=== PATIENT | female | born 1990 | race Hispanic/Latino ===

== ENCOUNTER 2018-02-21 17:11 | Inpatient (IN) | payer MEDICAID, SELFPAY ==
[2018-02-21 17:50] VITALS: BMI 38.7
--- NOTE | 2018-02-21 19:02 | PDOC.FPROB ---
FMR OB H&P: HPI - History of Present Illness Chief Complaint: Abnormal labs History of Present Illness: This is a 27 yo at 37.6wks by LMP c/w 12.4wk US who presents to L&D from clinic due to a concern for elevated BPs and a drop in platelets. Pt currently denies any headache, chest pain, SOB, abdominal pain, and nausea/ vomiting. She reports movement and denies LOF or vaginal bleeding. Labs in clinic were as follows: Cr 0.65, PLTs are 160, down from 238 FMR OB H&P: Current - Care : 2 Para: 1001 Gestational age: 37.6 Due date: 03/08/18 Dating Criteria: LMP c/w 12.4wk US - OB Labs Blood type: O RH: positive Antibody Screen: negative HIV: negative RPR: negative HepBsAg: negative Rubella: non-immune (08/14/17) Gonorrhea: negative Chlamydia: negative 1 hour gtt: 146 3 hour GTT: 125 A1c: 5.1 GBS: negative FMR OB H&P: History - OB History OB History: Vaginal delivery at 39.0 FMR OB H&P: Medications - Current Home Medications: Medication Instructions Recorded Confirmed Type Vitamin 1 tablet PO DAILY 02/21/18 02/21/18 History Allergies/Adverse Reactions: Allergies Allergy/AdvReac Type Severity Reaction Status Date / Time No Known Allergies Allergy Verified 02/21/18 17:44 FMR OB H&P: ROS - Review of Systems General: denies: fever/chills, weight/appetite/sleep changes Eyes: denies: eye pain, vision changes ENT: denies: nasal congestion Cardiovascular: denies: chest pain, palpitation Respiratory: denies: cough, shortness of breath Gastrointestinal: reports: nausea, vomiting. denies: abdominal pain, indigestion Genitourinary (Female): denies: incontinence, dysuria, vaginal pain, vaginal bleeding, contractions Musculoskeletal: denies: pain, stiffness Neurologic: denies: numbness, syncope Integumentary: denies: itching Psychological: denies: depression, anxiety FMR OB H&P: Vital Signs - Maternal Vital signs: BP 128/71, HR 81, RR 18, Temp 98.4 - Heart Tones Baseline: 140 Variability: moderate Acceleration: present Deceleration: absent Category: category 1 FMR OB H&P: Physical Exam - Physical Exam General: NAD, awake, alert and oriented HEENT: normocephalic and atraumatic, MMM Neck: supple, trachea midline Chest: non-tender to palpation, no lesions Heart: RRR, normal S1/S2 General: CTAB, no respiratory distress, good air movement, no wheezing Abdomen: soft, gravid, non-tender, bowel sound present Musculoskeletal: normal gait and station, pulses present Neurological: cranial nerves II through XII intact Skin: good tugor, capillary refill <2 seconds Psychiatric: intact recent and remote memory, good judgement and insight - Pelvic Exam SVE: C/T/H Mcmahan score: 0 FMR OB H&P: Results - Labs Lab results: Labs at C Cr .65 Plt 160 FMR OB H&P: A/P - Problem List (1) Third trimester Current Visit: Yes Status: Acute Code(s): Z34.93 - ENCNTR FOR SUPRVSN OF NORMAL PREG, UNSP, THIRD TRIMESTER (2) Gestational hypertension Current Visit: Yes Status: Acute Code(s): O13.9 - GESTATIONAL HTN W/O SIGNIFICANT PROTEINURIA, UNSP TRIMESTER Disposition: This is a 27 yo at 37.6 by LMP c/w 12.4 wk Third trimester with Gestational HTN -Admit to L&D -Cr of .65 and plt of 160 down from 230s, pending urine protein creatinine ratio for Pre-eclampsia work up, BP elevated above 150s/80s -First vaginal check is C/T/H, we will be initiating Cytotec induction and recheck in 4 hours -We will continue monitoring BP -Continuous FHT monitoring, currently cat 1 Rubella non immune, will need immunization Discussion: Date/Time: 02/21/18 155 This H&P was discussed with Dr. Lopez and Dr. Gilbert who agree with the above documentation and plan. Addendum - Attending - Attending Attestation Date/Time: 02/21/182221 I personally evaluated the patient and discussed the management with Dr. Kruse. I agree with the History, Examination, Assessment and Plan documented above with any addition or exceptions noted below.
[2018-02-21] MEDS ORDERED: NS / Oxytocin 40 units/1000ml 1,000 ML IV PRN (19:49)
[2018-02-21] MEDS ORDERED: Lidocaine 1% (PF) 30 ML VIAL SC PRN (19:49)
[2018-02-21] MEDS ORDERED: Ondansetron PF 4 MG/2 ML Vial IVP PRN (19:49)
[2018-02-21] MEDS ORDERED: Promethazine HCl 25 MG/ML VIAL IM PRN (19:49)
[2018-02-21 20:18] LABS: Creatinine, Urine 31.65 mg/dL (47-110); Protein, Urine Random Quant Less than 10 mg/dL (1-14)
[2018-02-21 20:20] LABS: Hemoglobin 12.9 g/dL (12.0-16.0); Mean Corpuscular HGB CONC 34.3 g/dL (32.0-36.0); Mean Corpuscular Hemoglobin 27.8 pg (27.0-31.0); Mean Platelet Volume 10.6 fL (7.4-10.4); Platelet Count 166 thou/uL (130-400); RBC Distribution Width 14.7 % (11.5-14.5); Red Blood Cell (RBC) Count 4.66 mill/uL (4.20-5.40)
[2018-02-21] MEDS ORDERED: Misoprostol 100 MCG TAB ONE (20:28)
[2018-02-21] MEDS: Misoprostol 100 MCG TAB VAG SCH (20:35)
[2018-02-21 20:50] LABS: Syphilis Antibody Nonreactive (Nonreactive); Syphilis Antibody Index 0.05 S/CO (<1.00 Non-Reactive)
[2018-02-21 20:57] LABS: HBSAg Index 0.36 S/CO (0-0.99); Hep B Surf Ag Non-Reactive S/CO (NonReactive)
--- NOTE | 2018-02-21 23:21 | ULT ---
EXAM: LIMITED OB ULTRASOUND: 02/21/18 HISTORY: 27-year-old female for limited OB ultrasound to evaluate position and placental location. Single fetus is noted in vertex presentation. heart rate is 136 beats per minute. The placenta appears to be fundal right sided and posterior. IMPRESSION: Limited OB ultrasound examination with heart rate of 136 beats per minute. Vertex presentation, and fundal right sided and posterior placenta. POS: [facility]
--- NOTE | 2018-02-21 23:52 | PDOC.LDPN ---
Labor & Delivery Progress Note - Subjective Subjective: comfortable, no concerns - Objective Vital signs reviewed and normal: yes General: NAD, resting Uterine fundus: non tender SVE: 3/80/-3 posterior, moderate consistency FHT: category 1 [place] contractions every: 2-3 minutes - Assessment (1) Third trimester Code(s): Z34.93 - ENCNTR FOR SUPRVSN OF NORMAL PREG, UNSP, THIRD TRIMESTER Current Visit: Yes Status: Acute (2) Gestational hypertension Code(s): O13.9 - GESTATIONAL HTN W/O SIGNIFICANT PROTEINURIA, UNSP TRIMESTER Current Visit: Yes Status: Acute -: This is a 27 yo at 37.6 by LMP c/w 12.4 wk Third trimester with Gestational HTN -BP systolic in 120s, current 157/82 -Urine protein/creatinine ratio <0.3 -Pt is 3/80/-3 we will hold off on cytotec and see if she progresses further -We will continue monitoring BP -Continuous FHT monitoring, Baseline is 140s, accels present. Monitor shows periods of HR in the 60s however monitor doppler sounds consistent with 120s- 130s at that time. Rubella non immune, will need immunization
[2018-02-22] MEDS: Lactated Ringer's 1,000 ML IV SCH ×3 (01:13→18:43)
[2018-02-22] MEDS: Misoprostol 100 MCG TAB VAG SCH ×3 (01:13→18:43)
[2018-02-22] MEDS ORDERED: Fentanyl 4 mcg/Bup 0.1% Cadd 100 ML ONE ×2 (02:05→09:30)
[2018-02-22] MEDS ORDERED: Lidocaine 1.5%/Epinephrine 1:200,000 5 ML AMPUL IJ ONE (02:22)
--- NOTE | 2018-02-22 02:34 | PDOC.LDPN ---
Labor & Delivery Progress Note - Subjective Subjective: painful contractions (Requesting epidural at this time) - Objective Vital signs reviewed and normal: yes General: NAD Uterine fundus: non tender SVE: 4/80/-2 FHT: category 1, variability present (baseline 140s, accels present, no decels, more consistent FHT monitoring) [place] contractions every: 1 minute - Assessment (1) Third trimester Code(s): Z34.93 - ENCNTR FOR SUPRVSN OF NORMAL PREG, UNSP, THIRD TRIMESTER Current Visit: Yes Status: Acute (2) Gestational hypertension Code(s): O13.9 - GESTATIONAL HTN W/O SIGNIFICANT PROTEINURIA, UNSP TRIMESTER Current Visit: Yes Status: Acute -: This is a 27 yo at 37.6 by LMP c/w 12.4 wk Third trimester with Gestational HTN -Admit to L&D -Cr of .65 and plt of 160 down from 230s, Urine protein/creatinine ratio <.3, BPs have been below 160/110 with majority in the 120s/80s -Current check is 4/80/-3, we are holding off on another dose of cytotec and will initiate pitocin if next check is more favorable -Pt is receiving epidural -We will continue monitoring BP -Continuous FHT monitoring, currently cat 1 Rubella non immune, will need immunization
[2018-02-22] MEDS ORDERED: Lactated Ringer's 500 ML IV PRN (02:45)
[2018-02-22] MEDS ORDERED: Promethazine HCl 25 MG/ML VIAL IM PRN (02:45)
[2018-02-22] MEDS ORDERED: Ondansetron PF 4 MG/2 ML Vial IVP PRN (02:45)
[2018-02-22] MEDS ORDERED: diphenhydrAMINE 50 MG/ML VIAL IVP PRN (02:45)
[2018-02-22] MEDS ORDERED: Communication Order-Pharmacy FS SCH (02:45)
[2018-02-22] MEDS ORDERED: Eucerin (Mineral Oil/Petrolatum,White) 30 gm Jar TOP PRN (02:45)
[2018-02-22] MEDS ORDERED: Naloxone HCl 0.4 mg/ml Vial IVP PRN ×2 (02:45)
[2018-02-22] MEDS ORDERED: ePHEDrine/0.9% NaCl/PF SYRINGE 50 mg/10 ml SLOW IVP PRN (02:45)
[2018-02-22] MEDS ORDERED: Fentanyl 4 mcg/Bupivacaine 0.1% Cassette 100 ML EPIDURAL SCH (02:45)
--- NOTE | 2018-02-22 04:43 | PDOC.LDPN ---
Labor & Delivery Progress Note - Subjective Subjective: comfortable, no concerns - Objective Vital signs reviewed and normal: yes General: NAD, resting Uterine fundus: non tender SVE: 4/80/-2 FHT: category 2 (Baseline 130s, minimal variability) [place] contractions every: 2-3 minutes - Assessment (1) Third trimester Code(s): Z34.93 - ENCNTR FOR SUPRVSN OF NORMAL PREG, UNSP, THIRD TRIMESTER Current Visit: Yes Status: Acute (2) Gestational hypertension Code(s): O13.9 - GESTATIONAL HTN W/O SIGNIFICANT PROTEINURIA, UNSP TRIMESTER Current Visit: Yes Status: Acute -: This is a 27 yo at 38.0 by LMP c/w 12.4 wk Third trimester with Gestational HTN -Admit to L&D -BPs below 160/110 -Current check is 4/80/-2, Pt is cat 2 due to minimal variability, we are adding D5LR to stimulate baby and recheck in 30 minutes -We will continue monitoring BP Rubella non immune, will need immunization
[2018-02-22] MEDS ORDERED: NS w/ Oxytocin 10 units 500 ML ONE (05:33)
[2018-02-22] MEDS ORDERED: NS w/ Oxytocin 10 units 500 ML IV SCH (05:45)
--- NOTE | 2018-02-22 08:56 | PDOC.LDPN ---
Labor & Delivery Progress Note - Subjective Subjective: comfortable - Objective Vital signs reviewed and normal: yes (Pt had elevated pressure but was laying on the cuff at the time.) General: NAD, resting, breathing through contractions Uterine fundus: non tender SVE: 8:40 Dilation: 6 Effacement: 90% Station: -1 FHT: category 2 (Pt has some minimal variability at this time. Improved since last check. ), variability present [place] contractions every: 2-3 minutes AROM: bloody fluid FSE placed: yes - Assessment (1) Gestational hypertension Code(s): O13.9 - GESTATIONAL HTN W/O SIGNIFICANT PROTEINURIA, UNSP TRIMESTER Current Visit: Yes Status: Acute (2) Third trimester Code(s): Z34.93 - ENCNTR FOR SUPRVSN OF NORMAL PREG, UNSP, THIRD TRIMESTER Current Visit: Yes Status: Acute Plan: continue plan of care -: This is a 27 yo at 38.0 by LMP c/w 12.4 wk Third trimester with Gestational HTN -Admit to L&D -BPs below 160/110. Had one elevated but pt was laying on cuff. Likely inaccurate read. All other pressures stable. -Current check is 6/90/-1, Pt is cat 2 due to minimal variability at times. Strip showing moderate variability during check. Having accelerations. Nurse gave juice recently and baby reacted more. Giving D5LR to see if helps baby perk up. -Due to strip FSE place for closer monitoring. AROM at 8:40. -We will continue monitoring BP -Pre-E labs negative Rubella non immune -will need immunization Addendum - Attending - Attending Attestation Date/Time: 02/22/18 1300 I personally evaluated the patient and discussed the management with Dr. Muniz and team. I agree with and repeated the History, Examination, Assessment and Plan documented above with any addition or exceptions noted below. Patient with cat 2 strip for periods of minimal variability. Appears to be having earlies. +accelerations with scalp stim. Due to difficult tracing will place FSE.
--- NOTE | 2018-02-22 09:02 | PDOC.LDPN ---
Labor & Delivery Progress Note - Subjective Subjective: comfortable - Objective Vital signs reviewed and normal: yes Abnormal vital signs: One sBP above 150 General: NAD, resting, breathing through contractions Uterine fundus: non tender SVE: 6:30 Dilation: 4 Effacement: 90% Station: -1 FHT: category 2, absent or minimal variables [place] contractions every: 2-3 minutes intermittently Other exam findings: Bag intact. Head well engaged - Assessment (1) Gestational hypertension Code(s): O13.9 - GESTATIONAL HTN W/O SIGNIFICANT PROTEINURIA, UNSP TRIMESTER Current Visit: Yes Status: Acute (2) Third trimester Code(s): Z34.93 - ENCNTR FOR SUPRVSN OF NORMAL PREG, UNSP, THIRD TRIMESTER Current Visit: Yes Status: Acute Plan: continue plan of care -: This is a 27 yo at 38.0 by LMP c/w 12.4 wk Third trimester with Gestational HTN -Admit to L&D -BPs below 160/110. -Current check is 4/90/-1 Pt is cat 2 due to minimal variability. Pt had good scalp stim and had acceleration during cervical check. Pt had episode where FHT strip read HR in 60 yet the audio HR calculated out to be normal around 130. Appears to have episodes where visual reading is reading maternal HR but audio giving normal FHR. Will continue to monitor strip. Possibly consider FSE if doesn't change. -We will continue monitoring BP Rubella non immune will need immunization
[2018-02-22] MEDS: Dextrose 5%-Lactated Ringers 1,000 ML IV SCH ×2 (09:08→18:43)
--- NOTE | 2018-02-22 10:42 | PDOC.OPDEL ---
Addendum entered and electronically signed by Farrah Valles DO 02/22/18 13:12 : Correction: vigorous Female infant delivered Original Note: OB Operative/Delivery Note Delivery Dr/Surgeon: Reena/Cristy/Rodrigue Pre-Delivery Diagnosis: medically indicated induction Procedure/Post Delivery Dx: spontaneous vaginal delivery Weeks gestation: 37 Anesthesia: epidural - Additional Findings/Plan Placenta delivered: spontaneous Repaired Obstetrical Laceration: vaginal Estimated blood loss: 250 Compilations/Other Findings: Delivering Physician: Bette Attending: Rodrigue Procedure: Spontaneous Vaginal Delivery Anesthesia: epidural EBL: 250 ml Pre-op Diagnosis: 1. Term intrauterine in labor 2. Gestational HTN 3. Rubella non immune Post-op Diagnosis: 1. Term intrauterine , delivered 2. same as above Indications: A 27 y/o female presents in with concern for pre-E and was induced. Delivery Note: This is 27yo F now 2 @ 37.6 wks who delivered a viable F at 10:10 on 02/22/18. Following an antepartum course with intermittent CAT II, a vigorous M was delivered over an intact perineum in the OA position. Anterior Shoulder and then remainder of the body delivered. Single nuchal cord delivered through. The head was held down and mouth and nares were bulb suctioned. Cord clamped after delayed cord clamping and cut and cord blood collected. Placenta delivered intact in the [place] presentation with a 3 vessel cord noted. Fundal massage was performed and the fundus was firm. The cervix and vagina were inspected and small 2nd degree laceration noted and repaired with chromic gut in the usual fashion with good approximation and hemostasis. Infant went to nursery in good condition for routine care. Apgars were 9/9 at 1 & 5 minutes, respectively. Patient tolerated delivery well and went to after routine recovery/care. Post delivery plan: routine recovery Addendum - Attending - Attending Attestation Date/Time: 02/22/18 1318 I was present and gloved for the entire delivery.
[2018-02-22] MEDS: Acetaminophen 325 MG TAB PO PRN (10:53)
[2018-02-22] MEDS ORDERED: Bisacodyl 10 MG SUPP PR PRN (18:18)
[2018-02-22] MEDS ORDERED: NS / Oxytocin 40 units/1000ml 1,000 ML IV SCH (18:18)
[2018-02-22] MEDS ORDERED: Milk Of Magnesia 30 ML UDCUP PO PRN (18:18)
[2018-02-22] MEDS ORDERED: Ferrous Sulfate 325 MG TAB PO SCH (18:45)
[2018-02-22] MEDS: Docusate Calcium (SURFAK) 240 MG CAP PO SCH (20:01)
[2018-02-22] MEDS ORDERED: Adacel (T-DAP) 0.5 ML SYRINGE IM ONE (21:00)
[2018-02-22] MEDS ORDERED: Measles/Mumps/Rubella 10 MCG/0.5 ML VIAL SC ONE (21:00)
[2018-02-23 04:07] VITALS: TEMP 98.3
[2018-02-23] MEDS: Acetaminophen 325 MG TAB PO PRN (06:10)
[2018-02-23] MEDS ORDERED: Ferrous Sulfate 325 MG TAB PO SCH (08:00)
[2018-02-23 08:03] VITALS: BP 124/68
--- NOTE | 2018-02-23 08:20 | PDOC.PP ---
Post Progress Note Post Day #: 1 Subjective: Pt reports doing well. Reports having some difficulty . Is supplementing with bottle. Denies any fever or chills. Reports minimal pain. Reports bleeding as light. Reports tolerating PO. Is passing gas. Has been up and moving around. Denies any swelling. Denies any headaches or vision changes. PO intake tolerated: yes Flatus: yes Ambulation: yes Vital Signs (12 hours) Temp Pulse Resp BP Pulse Ox 02/23/18 08:02 98.3 F 81 20 124/68 98 02/23/18 04:03 98.3 F 65 17 116/52 L 98 02/22/18 23:53 99.4 F 78 17 131/63 98 Weight Weight 89.811 kg - Physical Examination General: NAD Cardiovascular: no m/r/g, RRR Respiratory: clear to auscultation bilaterally, non-labored breathing Abdominal: + bowel sounds, lochia (Reports as light), no distention, appropriately TTP Fundus firm & at: below umbilicus Extremities: negative homans (B) Perineum: Intact no sign of bleeding Neurological: no gross focal deficits Psychiatric: A&Ox3, normal affect Result Diagrams: 02/21/18 20:05 Additional Labs: Post Labs Blood Type O POSITIVE 02/21/18 20:05 Hep Bs Antigen Non-Reactive S/CO (NonReactive) 02/21/18 20:05 (1) Gestational hypertension Code(s): O13.9 - GESTATIONAL HTN W/O SIGNIFICANT PROTEINURIA, UNSP TRIMESTER Status: Acute Qualifiers: Trimester: third trimester Qualified Code(s): O13.3 - Gestational [ -induced] hypertension without significant proteinuria, third trimester (2) Third trimester Code(s): Z34.93 - ENCNTR FOR SUPRVSN OF NORMAL PREG, UNSP, THIRD TRIMESTER Status: Resolved - Assessment/Plan his is a 27 yo ->2 who delivered at 10:10 via on 02/22/18. had 2nd degree perineal laceration which was repaired. Third trimester with Gestational HTN -Post day 1 -Doing well. -Pain being well controlled. 2nd degree lac repaired intact. No sign or redness or discharge. -Pt would like to go home after 24 hours. Gestational HTN -Has not had any severe pressures post . Denies any signs or sx's of pre-E -continue to monitor. Rubella non immune -MMR given . Addendum - Attending - Attending Attestation Date/Time: 02/23/18 5300 I personally evaluated the patient and discussed the management with Dr. Muniz and team. I agree with and repeated the History, Examination, Assessment and Plan documented above with any addition or exceptions noted below.
[2018-02-23] MEDS: Docusate Calcium (SURFAK) 240 MG CAP PO SCH (08:45)
== END 2018-02-23 15:06 | disposition home or self-care (01) | DRG 807 ==
LOC: L&D/OP 17:11 → L&D 20:42 → 3SE 02-22 18:17
PROVIDERS: ADMIT Family Medicine; ATTEND Family Medicine
PROC: 3E0P7VZ Introduction of Hormone into Female Reproductive, Via Natural or Artificial Opening (ICD-10-PCS; 2018-02-21)
PROC: 10E0XZZ Delivery of Products of Conception, External Approach (ICD-10-PCS; principal; 2018-02-22)
PROC: 0KQM0ZZ Repair Perineum Muscle, Open Approach (ICD-10-PCS; 2018-02-22)
PROC: 10907ZC Drainage of Amniotic Fluid, Therapeutic from Products of Conception, Via Natural or Artificial Opening (ICD-10-PCS; 2018-02-22)
PROC: 3E033VJ Introduction of Other Hormone into Peripheral Vein, Percutaneous Approach (ICD-10-PCS; 2018-02-22)
PROC: 3E0234Z Introduction of Serum, Toxoid and Vaccine into Muscle, Percutaneous Approach (ICD-10-PCS; 2018-02-23)
DX: O13.4 Gestational [pregnancy-induced] hypertension without significant proteinuria, complicating childbirth (principal); Z37.0 Single live birth; O69.81X0 Labor and delivery complicated by cord around neck, without compression, not applicable or unspecified; O70.1 Second degree perineal laceration during delivery; Z23 Encounter for immunization; Z3A.38 38 weeks gestation of pregnancy
CPT/HCPCS: 36415; 51702; 76815; 82570; 84156; 85027; 86780; 86850; 86900; 86901; 87340; 99285; J2001; J3490

== ENCOUNTER 2022-08-05 10:00 | Inpatient (IN) | payer MEDICAID, SELFPAY ==
[~2022-08-05 10:00] MED LIST: Iopamidol-370 76% 500 ML MDV (1 ML CHARGE) ONE
[2022-08-05 10:18] LABS: #Eosinphils 0.2 thou/uL (0.0-0.7); #Monocytes 0.5 thou/uL (0.11-0.59); #Neutrophils 4.2 thou/uL (1.40-6.50); %Basophils 0.3 % (0.0-1.0); %Eosinophils 1.5 % (0.0-10.0); %Lymphocytes 58.6 % (21.0-51.0); %Monocytes 4.3 % (0.0-10.0); %Neutrophils 34.6 % (42.0-75.0); Hemoglobin 12.6 g/dL (12.0-16.0); Mean Corpuscular HGB CONC 31.3 g/dL (32.0-36.0); Mean Corpuscular Hemoglobin 26.6 pg (27.0-31.0); Mean Corpuscular Volume 84.8 fl (78.0-98.0); Mean Platelet Volume 10.5 fL (7.4-10.4); Platelet Count 285 10x3/uL (130-400); RBC Distribution Width 14.9 % (11.5-14.5); Red Blood Cell (RBC) Count 4.74 mill/uL (4.20-5.40); White Blood Cell (WBC) Count 12.1 10x3/uL (4.8-10.8)
[2022-08-05 10:35] LABS: PTT 31.7 sec (22.9-36.1); Prothrombin Time 13.2 sec (12.0-14.7)
[2022-08-05 10:39] LABS: ALT (SGPT) 93 U/L (8-55); AST (SGOT) 107 U/L (5-34); Albumin 4.1 g/dL (3.5-5.0); Alkaline Phosphatase 75 U/L (40-110); Anion Gap 16 mmol/L (10-20); BUN (Urea Nitrogen) 12 mg/dL (7.0-18.7); Bilirubin, Total 0.6 mg/dL (0.2-1.2); Calc. Creatinine Clearance 0 mL/min (70-130); Calcium 8.6 mg/dL (7.8-10.44); Carbon Dioxide 17 mmol/L (22-29); Chloride 107 mmol/L (98-107); Estimated GFR 95; Globulin 3.6 g/dL (2.4-3.5); Glucose 214 mg/dL (70-105); Lipase 25 U/L (8-78); Potassium 3.7 mmol/L (3.5-5.1); Protein, Total 7.7 g/dL (6.0-8.3); Sodium 136 mmol/L (136-145)
[2022-08-05 10:40] LABS: Bacteria/HPF 1+ HPF (None Seen); Bilirubin Negative (Negative); Blood, Urine Negative (Negative); CAUTI Indications for Culture Alt mental st,lethar; Clarity Clear (Clear); Glucose, Urine (Dipstick) 100 mg/dL (Negative); Ketone, Urine Negative (Negative); Leukocyte Negative Leu/uL (Negative); Nitrite Negative (Negative); Protein, Urine (Dipstick) 300 mg/dL (Neg-Trace); Specific Gravity, Urine 1.011 (1.002-1.036); Squamous Epithelial 0-3 HPF (0-3); Urobilinogen Normal mg/dL (Less than 2); pH, Urine 7.5 (5.0-9.0)
[2022-08-05 10:41] LABS: Urine Culture Reflex No No
[2022-08-05] MEDS ORDERED: Fentanyl CADD 100 ML IV SCH (11:00)
[2022-08-05] MEDS ORDERED: Cefepime 2 GM VIAL ONE (11:03)
[2022-08-05 11:09] LABS: Actual Bicarbonate (HCO3a) 16.8 mEq/L (22-28); Analyzer IN Cardio ER; CO2 Tension 36.2 mmHg (35.0-45.0); Calcium, Ionized (arterial) 1.15 mmol/L (1.12-1.30); Carboxyhemoglobin (COHb) 0.2 gm% (0.0-3.0); Hematocrit-ABG 39 % (36.0-47.0); Hemoglobin (Hb) 13.3 g/dL (12.0-16.0); O2 Tension (PaO2), arterial 123.9 mmHg (80.0-100.0); Potassium - ABG Lab 3.14 mmol/L (3.70-5.30); pH, Arterial 7.284 (7.35-7.45)
[2022-08-05 11:10] LABS: Puncture Site RRA
[2022-08-05] MEDS ORDERED: VANCOMYCIN 2 GRAM/500 ML BAG 2 GM in Premix Bag 1 BAG IVPB SCH (11:30)
[2022-08-05] MEDS ORDERED: fentaNYL 50 mcg/mL 1 mL Vial ONE (11:31)
[2022-08-05] MEDS ORDERED: Propofol 1,000 MG/100 ML VIAL IV ONE (11:33)
[2022-08-05] MEDS ORDERED: Midazolam HCl 2 mg/2 ml Vial ONE (12:12)
[2022-08-05] MEDS ORDERED: Rocuronium Bromide 10 MG/ML (10ML VIAL) ONE (12:28)
[2022-08-05] MEDS ORDERED: Ketamine 50 MG/ML (10ML VIAL) ONE (12:28)
[2022-08-05] MEDS ORDERED: Ondansetron PF 4 MG/2 ML Vial IVP PRN (12:35)
[2022-08-05] MEDS ORDERED: Acetaminophen 325 MG TAB PO PRN (12:35)
[2022-08-05] MEDS ORDERED: Acetaminophen 650 MG Suppository PR PRN (12:35)
[2022-08-05] MEDS ORDERED: Dextrose 5% in Water 1,000 ML IV PRN (12:41)
[2022-08-05] MEDS ORDERED: Glucagon 1 MG/ML KIT IM PRN (12:41)
[2022-08-05] MEDS ORDERED: Dextrose 50% Abboject 50 ML SYRINGE SLOW IVP PRN (12:41)
[2022-08-05] MEDS ORDERED: HumaLOG 300 UNITS/3 ML VIAL SC PRN (12:41)
[2022-08-05] MEDS ORDERED: Morphine 2 MG/ML VIAL SLOW IVP PRN (12:45)
[2022-08-05] MEDS ORDERED: DISCONTINUE PREVIOUS NARCOTIC PAIN MEDICATIONS AND BENZODIAZEPINES FS SCH (12:45)
[2022-08-05] MEDS ORDERED: Propofol BOLUS 1,000 MG/100 ML VIAL IV PRN (12:45)
[2022-08-05] MEDS ORDERED: Fentanyl BOLUS 250 ML IVPB PRN (12:45)
[2022-08-05] MEDS ORDERED: Ventilator Sedation Protocol 1 EACH FS PRN (12:45)
[2022-08-05 13:18] LABS: Lactic Acid 2.4 mmol/L (0.5-2.2)
[2022-08-05 13:22] LABS: Troponin I 0.041 ng/mL (< 0.028)
[2022-08-05 13:43] LABS: Magnesium 1.9 mg/dL (1.6-2.6); Phosphorus 1.8 mg/dL (2.3-4.7)
[2022-08-05 13:55] LABS: Amphetamine Not Detected (NotDetected); Barbiturates Screen Not Detected (NotDetected); Benzodiazepine Screen Not Detected (NotDetected); Cocaine Metabolite Screen Not Detected (NotDetected); Methadone Not Detected (NotDetected); Methamphetamine Not Detected (NotDetected); Opiate Screen Not Detected (NotDetected); Oxycodone Screen Not Detected (NotDetected); Phencyclidine (PCP) Not Detected (NotDetected); THC/Cannabinoid Screen Not Detected (NotDetected); Tricyclic Screen Not Detected (NotDetected)
[2022-08-05] MEDS ORDERED: Piperacillin/Tazobactam 3.375 GM in Sodium Chloride 0.9% 100 ML IVPB SCH (14:00)
[2022-08-05] MEDS ORDERED: Piperacillin/Tazobactam 4.5 GM in Sodium Chloride 0.9% 100 ML IVPB SCH (14:00)
[2022-08-05 14:05] LABS: Actual Bicarbonate (HCO3a) 20.6 mEq/L (22-28); Base Excess (BEa) -4.6 mEq/L (-2.0 to +3.0); CO2 Tension 38.2 mmHg (35.0-45.0); Calcium, Ionized (arterial) 1.11 mmol/L (1.12-1.30); Carboxyhemoglobin (COHb) 0.3 gm% (0.0-3.0); Hematocrit-ABG 38 % (36.0-47.0); Hemoglobin (Hb) 12.9 g/dL (12.0-16.0); O2 Tension (PaO2), arterial 148.4 mmHg (80.0-100.0); Potassium - ABG Lab 3.94 mmol/L (3.70-5.30); pH, Arterial 7.349 (7.35-7.45)
[2022-08-05 14:06] LABS: Puncture Site LBA
[2022-08-05 14:13] LABS: Anion Gap 11 mmol/L (10-20); BUN (Urea Nitrogen) 12 mg/dL (7.0-18.7); Calc. Creatinine Clearance 0 mL/min (70-130); Calcium 8.6 mg/dL (7.8-10.44); Carbon Dioxide 20 mmol/L (22-29); Chloride 110 mmol/L (98-107); Estimated GFR 103; Glucose 125 mg/dL (70-105); Potassium 3.6 mmol/L (3.5-5.1); Sodium 137 mmol/L (136-145)
[2022-08-05] MEDS: Lactated Ringer's 1,000 ML IV SCH ×2 (14:14→23:07)
[2022-08-05] MEDS ORDERED: Potassium Phosphate 15 MMOL in Sodium Chloride 0.9% 250 ML 250 ML IVPB SCH ×2 (15:00→21:45)
[2022-08-05] MEDS: Lorazepam 2 MG/ML VIAL SLOW IVP PRN ×2 (16:00→20:38)
[2022-08-05] MEDS: Propofol 1,000 MG/100 ML VIAL IV PRN ×2 (16:05→20:37)
[2022-08-05 16:26] LABS: Lactic Acid 2.6 mmol/L (0.5-2.2)
[2022-08-05] MEDS: Piperacillin/Tazobactam 3.375 GM in Sodium Chloride 0.9% 100 ML IVPB SCH (20:35)
[2022-08-05] MEDS: Famotidine/PF 20 mg/2ml Vial SLOW IVP SCH (20:37)
[2022-08-05] MEDS ORDERED: Magnesium 2 GM/50 ML(in water) 2 GM in Premix Bag 1 BAG IVPB SCH (21:00)
[2022-08-05] MEDS ORDERED: Magnesium Sulfate In Water 4 GM in Premix Bag 1 BAG IVPB SCH (21:30)
[2022-08-05] MEDS ORDERED: Magnesium Sulfate 20 GM/WATER 500 ML BAG IVPB SCH (21:30)
[2022-08-05 21:56] LABS: Magnesium 1.7 mg/dL (1.6-2.6)
[2022-08-05 22:01] LABS: Troponin I 0.024 ng/mL (< 0.028)
[2022-08-05 22:45] LABS: BUN (Urea Nitrogen) 9 mg/dL (7.0-18.7); Calc. Creatinine Clearance 177 mL/min (70-130); Calcium 8.1 mg/dL (7.8-10.44); Carbon Dioxide 20 mmol/L (22-29); Chloride 109 mmol/L (98-107); Estimated GFR 119; Glucose 115 mg/dL (70-105); Potassium 4.4 mmol/L (3.5-5.1); Sodium 138 mmol/L (136-145)
[2022-08-05 22:49] LABS: Anion Gap 13 mmol/L (10-20)
[2022-08-06] MEDS ORDERED: Magnesium Sulfate 20 GM/WATER 500 ML BAG IVPB SCH (01:45)
[2022-08-06] MEDS ORDERED: Magnesium Sulfate In Water 4 GM in Premix Bag 1 BAG IVPB SCH (02:00)
[2022-08-06 02:13] LABS: Magnesium 3.4 mg/dL (1.6-2.6)
[2022-08-06] MEDS: Fentanyl CADD 100 ML IV SCH ×2 (04:02→17:17)
[2022-08-06 04:06] LABS: #Monocytes 0.6 thou/uL (0.11-0.59); #Neutrophils 6.9 thou/uL (1.40-6.50); %Basophils 0.2 % (0.0-1.0); %Eosinophils 0.3 % (0.0-10.0); %Lymphocytes 21.2 % (21.0-51.0); %Monocytes 6.4 % (0.0-10.0); %Neutrophils 71.6 % (42.0-75.0); Hemoglobin 10.6 g/dL (12.0-16.0); Mean Corpuscular HGB CONC 31.8 g/dL (32.0-36.0); Mean Corpuscular Hemoglobin 26.5 pg (27.0-31.0); Mean Corpuscular Volume 83.3 fl (78.0-98.0); Mean Platelet Volume 10.4 fL (7.4-10.4); Platelet Count 209 10x3/uL (130-400); RBC Distribution Width 15.2 % (11.5-14.5); White Blood Cell (WBC) Count 9.6 10x3/uL (4.8-10.8)
[2022-08-06] MEDS: Isoproterenol 2 MG in Dextrose 5% in Water 500 ML IVPB SCH (04:18)
[2022-08-06 04:28] LABS: Anion Gap 8 mmol/L (10-20); BUN (Urea Nitrogen) 8 mg/dL (7.0-18.7); Calc. Creatinine Clearance 172 mL/min (70-130); Calcium 8.2 mg/dL (7.8-10.44); Carbon Dioxide 24 mmol/L (22-29); Chloride 108 mmol/L (98-107); Estimated GFR 118; Glucose 130 mg/dL (70-105); Magnesium 2.9 mg/dL (1.6-2.6); Potassium 3.7 mmol/L (3.5-5.1); Sodium 136 mmol/L (136-145)
[2022-08-06 04:38] LABS: Magnesium 2.9 mg/dL (1.6-2.6)
[2022-08-06 04:47] LABS: Phosphorus 2.7 mg/dL (2.3-4.7)
[2022-08-06] MEDS: Lorazepam 2 MG/ML VIAL SLOW IVP PRN ×6 (04:51→23:45)
[2022-08-06] MEDS ORDERED: Potassium Chloride 20 MEQ in Premix Bag 1 BAG IVPB SCH ×2 (05:00→19:15)
[2022-08-06] MEDS: Propofol 1,000 MG/100 ML VIAL IV PRN ×4 (05:07→21:12)
[2022-08-06] MEDS: Piperacillin/Tazobactam 3.375 GM in Sodium Chloride 0.9% 100 ML IVPB SCH ×3 (07:43→19:35)
[2022-08-06] MEDS: Lactated Ringer's 1,000 ML IV SCH ×2 (07:56→18:32)
[2022-08-06] MEDS: Famotidine/PF 20 mg/2ml Vial SLOW IVP SCH ×2 (09:00→20:42)
[2022-08-06 10:15] LABS: Anion Gap 9 mmol/L (10-20); BUN (Urea Nitrogen) 6 mg/dL (7.0-18.7); Calc. Creatinine Clearance 169 mL/min (70-130); Calcium 8.4 mg/dL (7.8-10.44); Carbon Dioxide 24 mmol/L (22-29); Chloride 108 mmol/L (98-107); Estimated GFR 117; Glucose 116 mg/dL (70-105); Magnesium 2.5 mg/dL (1.6-2.6); Sodium 137 mmol/L (136-145)
[2022-08-06 13:39] VITALS: BMI 36.1
[2022-08-06 13:53] LABS: Magnesium 2.3 mg/dL (1.6-2.6)
[2022-08-06] MEDS ORDERED: Fentanyl CADD 100 ML ONE (16:42)
[2022-08-06 17:19] LABS: Anion Gap 9 mmol/L (10-20); BUN (Urea Nitrogen) 6 mg/dL (7.0-18.7); Calc. Creatinine Clearance 167 mL/min (70-130); Calcium 8.2 mg/dL (7.8-10.44); Carbon Dioxide 23 mmol/L (22-29); Chloride 106 mmol/L (98-107); Estimated GFR 117; Glucose 102 mg/dL (70-105); Potassium 3.9 mmol/L (3.5-5.1); Sodium 134 mmol/L (136-145)
[2022-08-06 17:30] LABS: Magnesium 2.2 mg/dL (1.6-2.6)
[2022-08-06] MEDS ORDERED: Magnesium Oxide 400 MG TAB PER TUBE SCH (19:00)
[2022-08-06] MEDS ORDERED: Magnesium 2 GM/50 ML(in water) 2 GM in Premix Bag 1 BAG IVPB SCH (19:15)
[2022-08-06] MEDS ORDERED: Magnesium Oxide 400 MG TAB PO SCH (21:00)
[2022-08-06 22:17] LABS: Anion Gap 10 mmol/L (10-20); BUN (Urea Nitrogen) 6 mg/dL (7.0-18.7); Calc. Creatinine Clearance 165 mL/min (70-130); Calcium 8.4 mg/dL (7.8-10.44); Carbon Dioxide 23 mmol/L (22-29); Chloride 106 mmol/L (98-107); Estimated GFR 115; Glucose 109 mg/dL (70-105); Magnesium 2.7 mg/dL (1.6-2.6); Potassium 3.9 mmol/L (3.5-5.1); Sodium 135 mmol/L (136-145)
[2022-08-07] MEDS ORDERED: Potassium Chloride 20 MEQ in Premix Bag 1 BAG IVPB SCH (01:00)
[2022-08-07] MEDS: Propofol 1,000 MG/100 ML VIAL IV PRN ×5 (04:18→22:43)
[2022-08-07] MEDS: Lactated Ringer's 1,000 ML IV SCH ×2 (04:21→13:51)
[2022-08-07 04:30] LABS: Hemoglobin 9.7 g/dL (12.0-16.0); Mean Corpuscular HGB CONC 31.8 g/dL (32.0-36.0); Mean Corpuscular Hemoglobin 26.8 pg (27.0-31.0); Mean Corpuscular Volume 84.3 fl (78.0-98.0); Mean Platelet Volume 10.1 fL (7.4-10.4); Platelet Count 184 10x3/uL (130-400); RBC Distribution Width 15.2 % (11.5-14.5); Red Blood Cell (RBC) Count 3.62 mill/uL (4.20-5.40); White Blood Cell (WBC) Count 7.2 10x3/uL (4.8-10.8)
[2022-08-07 04:54] LABS: Anion Gap 9 mmol/L (10-20); BUN (Urea Nitrogen) 6 mg/dL (7.0-18.7); Calc. Creatinine Clearance 160 mL/min (70-130); Calcium 8.6 mg/dL (7.8-10.44); Carbon Dioxide 25 mmol/L (22-29); Chloride 106 mmol/L (98-107); Estimated GFR 111; Glucose 111 mg/dL (70-105); Magnesium 2.2 mg/dL (1.6-2.6); Phosphorus 2.3 mg/dL (2.3-4.7); Sodium 136 mmol/L (136-145)
[2022-08-07] MEDS: Fentanyl CADD 100 ML IV SCH ×2 (06:15→19:41)
[2022-08-07] MEDS ORDERED: Magnesium 2 GM/50 ML(in water) 2 GM in Premix Bag 1 BAG IVPB SCH (07:00)
[2022-08-07] MEDS: Famotidine/PF 20 mg/2ml Vial SLOW IVP SCH ×2 (07:39→20:12)
[2022-08-07] MEDS: Piperacillin/Tazobactam 3.375 GM in Sodium Chloride 0.9% 100 ML IVPB SCH ×3 (07:40→20:12)
[2022-08-07] MEDS: Lorazepam 2 MG/ML VIAL SLOW IVP PRN ×4 (08:05→20:12)
[2022-08-07 10:09] LABS: Magnesium 2.7 mg/dL (1.6-2.6)
[2022-08-07] MEDS ORDERED: Communication Order-Pharmacy FS SCH (10:30)
[2022-08-07 13:30] LABS: Magnesium 2.2 mg/dL (1.6-2.6)
[2022-08-07 14:54] LABS: Magnesium 2.1 mg/dL (1.6-2.6)
[2022-08-07 22:04] LABS: Magnesium 1.9 mg/dL (1.6-2.6)
[2022-08-08] MEDS: Lactated Ringer's 1,000 ML IV SCH ×2 (00:13→10:48)
[2022-08-08] MEDS: Isoproterenol 2 MG in Dextrose 5% in Water 500 ML IVPB SCH (00:13)
[2022-08-08] MEDS ORDERED: Magnesium 2 GM/50 ML(in water) 2 GM in Premix Bag 1 BAG IVPB SCH (00:30)
[2022-08-08 02:19] LABS: Magnesium 3.1 mg/dL (1.6-2.6)
[2022-08-08] MEDS: Propofol 1,000 MG/100 ML VIAL IV PRN ×5 (02:30→15:05)
[2022-08-08] MEDS: Lorazepam 2 MG/ML VIAL SLOW IVP PRN ×3 (04:43→15:05)
[2022-08-08 05:04] LABS: Hemoglobin 9.6 g/dL (12.0-16.0); Mean Corpuscular HGB CONC 32.3 g/dL (32.0-36.0); Mean Corpuscular Hemoglobin 26.9 pg (27.0-31.0); Mean Corpuscular Volume 83.2 fl (78.0-98.0); Mean Platelet Volume 10.5 fL (7.4-10.4); Platelet Count 175 10x3/uL (130-400); RBC Distribution Width 15.1 % (11.5-14.5); Red Blood Cell (RBC) Count 3.57 mill/uL (4.20-5.40); White Blood Cell (WBC) Count 5.6 10x3/uL (4.8-10.8)
[2022-08-08 05:26] LABS: Anion Gap 12 mmol/L (10-20); BUN (Urea Nitrogen) 8 mg/dL (7.0-18.7); Calc. Creatinine Clearance 166 mL/min (70-130); Calcium 8.8 mg/dL (7.8-10.44); Carbon Dioxide 23 mmol/L (22-29); Chloride 106 mmol/L (98-107); Estimated GFR 117; Glucose 113 mg/dL (70-105); Potassium 3.8 mmol/L (3.5-5.1); Sodium 137 mmol/L (136-145)
[2022-08-08 07:03] VITALS: TEMP 98.4
[2022-08-08] MEDS: Piperacillin/Tazobactam 3.375 GM in Sodium Chloride 0.9% 100 ML IVPB SCH ×2 (08:03→12:38)
[2022-08-08] MEDS: Famotidine/PF 20 mg/2ml Vial SLOW IVP SCH (08:03)
[2022-08-08 08:26] LABS: Actual Bicarbonate (HCO3a) 22.5 mEq/L (22-28); Base Excess (BEa) -0.8 mEq/L (-2.0 to +3.0); CO2 Tension 32.4 mmHg (35.0-45.0); Calcium, Ionized (arterial) 1.14 mmol/L (1.12-1.30); Carboxyhemoglobin (COHb) 0.1 gm% (0.0-3.0); Hematocrit-ABG 32 % (36.0-47.0); O2 Tension (PaO2), arterial 140.7 mmHg (80.0-100.0); Potassium - ABG Lab 3.85 mmol/L (3.70-5.30); Puncture Site Arterial Line; pH, Arterial 7.459 (7.35-7.45)
[2022-08-08] MEDS ORDERED: Lidocaine 1% (PF) 30 ML VIAL ONE (08:34)
[2022-08-08] MEDS ORDERED: Iopamidol 370 76% 100 ML VIAL ONE (09:15)
[2022-08-08] MEDS ORDERED: Fentanyl CADD 100 ML ONE (09:35)
[2022-08-08 10:41] VITALS: BP 96/77
[2022-08-08] MEDS: Fentanyl CADD 100 ML IV SCH (10:47)
== END 2022-08-08 15:35 | disposition short-term general hospital (02) | DRG 286 ==
LOC: ERS 10:00 → CCU 13:00
PROVIDERS: ADMIT Internal Medicine; ATTEND Internal Medicine
PROC: 5A1945Z Respiratory Ventilation, 24-96 Consecutive Hours (ICD-10-PCS; 2022-08-05)
PROC: 03HY32Z Insertion of Monitoring Device into Upper Artery, Percutaneous Approach (ICD-10-PCS; 2022-08-06)
PROC: 4A133B1 Monitoring of Arterial Pressure, Peripheral, Percutaneous Approach (ICD-10-PCS; 2022-08-06)
PROC: 4A133J1 Monitoring of Arterial Pulse, Peripheral, Percutaneous Approach (ICD-10-PCS; 2022-08-06)
PROC: 4A023N7 Measurement of Cardiac Sampling and Pressure, Left Heart, Percutaneous Approach (ICD-10-PCS; principal; 2022-08-08)
PROC: B2111ZZ Fluoroscopy of Multiple Coronary Arteries using Low Osmolar Contrast (ICD-10-PCS; 2022-08-08)
DX: I49.01 Ventricular fibrillation (principal); J96.01 Acute respiratory failure with hypoxia; E87.20 Acidosis, unspecified; R73.9 Hyperglycemia, unspecified; I46.2 Cardiac arrest due to underlying cardiac condition; I47.29 Other ventricular tachycardia; I47.21 Torsades de pointes; O13.5 Gestational [pregnancy-induced] hypertension without significant proteinuria, complicating the puerperium; I49.02 Ventricular flutter; I45.81 Long QT syndrome
CPT/HCPCS: 31500; 36415; 36416; 36600; 51702; 71045; 71275; 80048; 80053; 80306; 81001; 82805; 83036; 83605; 83690; 83735; 83880; 84100; 84443; 84484; 85025; 85027; 85610; 85730; 87040; 93005; 93010; 93306; 93458; 94002; 94003; 96361; 96365; 96367; 96368; 96375; 96376; 99292; C1769; J0692; J1650; J2001; J2060; J2250; J2543; J2704; J3010; J3370; J3475; J3480; J3490; J7050; J7070; J7120; Q9967; S0028

== ENCOUNTER 2023-09-08 15:28 | Emergency (ER) | payer MEDICAID, SELFPAY ==
[2023-09-08 17:11] LABS: #Basophils 0.03 10x3/uL (0.0-0.2); %Basophils 0.3 % (0.0-1.0); %Eosinophils 1.3 % (0.0-10.0); %Lymphocytes 26.9 % (21.0-51.0); %Neutrophils 64.8 % (42.0-75.0); Hematocrit 40.8 % (36.0-47.0); Hemoglobin 12.8 g/dL (12.0-16.0); Mean Corpuscular HGB CONC 31.4 g/dL (32.0-36.0); Mean Corpuscular Hemoglobin 25.1 pg (27.0-31.0); Platelet Count 246 10x3/uL (130-400); RBC Distribution Width 15.3 % (11.5-14.5)
[2023-09-08 17:26] LABS: ALT (SGPT) 15 U/L (8-55); AST (SGOT) 17 U/L (5-34); Albumin 4.1 g/dL (3.5-5.0); Alkaline Phosphatase 72 U/L (40-110); Anion Gap 10 mmol/L (10-20); BUN (Urea Nitrogen) 16 mg/dL (7.0-18.7); Bilirubin, Total 0.4 mg/dL (0.2-1.2); Calc. Creatinine Clearance 0 mL/min (70-130); Calcium 9.9 mg/dL (7.8-10.44); Carbon Dioxide 25 mmol/L (22-29); Chloride 106 mmol/L (98-107); Estimated GFR 96; Globulin 4.3 g/dL (2.4-3.5); Glucose 105 mg/dL (70-105); Lipase 16 U/L (8-78); Potassium 3.7 mmol/L (3.5-5.1); Protein, Total 8.4 g/dL (6.0-8.3); Sodium 137 mmol/L (136-145)
[2023-09-08 17:51] LABS: Bacteria/HPF 1+ HPF (None Seen); Bilirubin Negative (Negative); Blood, Urine Negative (Negative); CAUTI Indications for Culture Dysuria,urgency,freq; Clarity Clear (Clear); Glucose, Urine (Dipstick) Normal (Negative); Ketone, Urine Negative (Negative); Leukocyte 250 Leu/uL (Negative); Nitrite Negative (Negative); Pregnancy Test - Urine (BHCG) Negative (Negative); Pregu Control Background? CLEAR/WHITE (CLR/WHITE); Pregu Control Bar Appear? YES (CONTROL BAR); Protein, Urine (Dipstick) Negative (Neg-Trace); RBC/HPF 0-3 HPF (0-3); Specific Gravity 1.006 (1.002-1.036); Specific Gravity, Urine 1.006 (1.002-1.036); Squamous Epithelial 0-3 HPF (0-3); Urobilinogen Normal mg/dL (Less than 2)
[2023-09-08 17:52] LABS: Urine Culture Reflex No No
[2023-09-08 19:03] LABS: Magnesium 2.1 mg/dL (1.6-2.6)
== END 2023-09-08 18:45 | disposition home or self-care (01) ==
LOC: ERS 15:28
DX: K80.20 Calculus of gallbladder without cholecystitis without obstruction (principal); Z55.6 Problems related to health literacy; Z86.74 Personal history of sudden cardiac arrest
CPT/HCPCS: 36415; 76705; 80053; 81001; 81025; 83690; 83735; 85025; 93005; 96374; 96375; J1885; J2405